=== PATIENT | female | born 1965 | race Caucasian/White ===

== ENCOUNTER 2021-04-12 16:02 | Emergency (ER) | payer MEDICAID ==
[~2021-04-12] VITALS: Ht 144.8 cm; Wt 50.3 kg
[~2021-04-12 16:02] MED LIST: SYN.075 PO
[2021-04-12 16:29] VITALS: BP 125/70
--- NOTE | 2021-04-12 16:33 | NUR ---
PT SENT TO LOBBY
[2021-04-12] MEDS ORDERED: CEPH-588 PO (17:30)
[2021-04-12] MEDS ORDERED: PHEN-1877 PO (17:30)
[2021-04-12 17:56] VITALS: BP 125/70
--- NOTE | 2021-04-12 17:56 | NUR ---
NO NURSING INTERVENTIONS IMPLEMENTED
--- NOTE | 2021-04-12 17:56 | NUR ---
Patient discharged with v/s stable. Written and verbal after care instructions given and explained. Patient alert, oriented and verbalized understanding of instructions. Ambulatory with steady gait. All questions addressed prior to discharge. ID band removed. Patient advised to follow up with PMD. Rx of KEFLEX AND PYRIDIUM given. Patient educated on indication of medication including possible reaction and side effects. Opportunity to ask questions provided and answered.
== END 2021-04-12 17:56 | disposition home or self-care (01) ==
LOC: MED 16:02
DX: N39.0 Urinary tract infection, site not specified (principal); E03.9 Hypothyroidism, unspecified; Z79.899 Other long term (current) drug therapy; Z79.2 Long term (current) use of antibiotics
CPT/HCPCS: 81002; 87086; 99283

== ENCOUNTER 2023-04-28 17:43 | Emergency (ER) | payer MEDICAID ==
[~2023-04-28] VITALS: Ht 144.8 cm; Wt 51.3 kg
[~2023-04-28 17:43] MED LIST changes: +CEPH-588 PO; +PHEN-1877 PO
[2023-04-28 18:00] VITALS: BP 108/60; PULSE 83; RESP 20; TEMP 97.8; O2SAT 96
[2023-04-28] MEDS ORDERED: KETOROLAC 30 MG/ML VIAL IM ONE (19:30)
[2023-04-28] MEDS ORDERED: MELO-174 PO (20:49)
[2023-04-28 21:00] VITALS: BP 108/60; PULSE 83; RESP 20; TEMP 97.8; O2SAT 96
== END 2023-04-28 21:00 | disposition home or self-care (01) ==
LOC: MED 17:43
DX: M75.31 Calcific tendinitis of right shoulder (principal); Z86.39 Personal history of other endocrine, nutritional and metabolic disease; Z79.899 Other long term (current) drug therapy; Z79.2 Long term (current) use of antibiotics
CPT/HCPCS: 73030; 96372; 99283; J1885